=== PATIENT | female | born 1965 | race Caucasian/White ===

== ENCOUNTER → 2021-01-03 09:44 | Outpatient (BNVA) | payer MEDICAID, SELFPAY | PROVIDERS: Referring Provider Family Medicine; Visit Provider Podiatrist Foot & Ankle Surgery | DX: M79.671 Pain in right foot (principal); M19.071 Primary osteoarthritis, right ankle and foot; M21.611 Bunion of right foot | CPT/HCPCS: 73630 ==

== ENCOUNTER → 2021-02-12 09:22 | Outpatient (BNVA) | payer OTHER, SELFPAY | PROVIDERS: Visit Provider Podiatrist Foot & Ankle Surgery | DX: Z01.818 Encounter for other preprocedural examination (principal); Z20.822 Contact with and (suspected) exposure to COVID-19 | CPT/HCPCS: 87635 ==

== ENCOUNTER 2021-02-16 07:28 | Day surgery (SDC) | payer OTHER, SELFPAY ==
[2021-02-15 13:00] VITALS: BMI 27.3
[2021-02-16] VITALS (9 sets, daily range): BP systolic 110–162; BP diastolic 77–99; PULSE 76–95; RESP 13–21; TEMP 36.1–36.6; O2SAT 91–97
--- NOTE | 2021-02-16 | SCC_ITS ---
Procedure Done: Right gastrocnemius recession. First metatarsophalangeal joint arthrodesis, second tarsometatarsal joint arthrodesis and exostectomy all right foot. 11 seconds of fluoroscopic guidance, for a cumulative dose of 0.18 mGy, was provided to Dr. Mora by the radiology department. C-arm images of the RIGHT foot were saved for the patient's permanent record. [facility]OSPITALCassandra
[2021-02-16] MEDS: sodium chloride 0.9% 1,000 ML 30 ML IV (08:10)
--- NOTE | 2021-02-16 08:17 | ANES.PREANE2 ---
Pre-Anesthetic Assessment Pre-Anesthetic Assessment: Height/Weight: Height 1.6 m Weight 69.853 kg Temp Pulse Resp BP Pulse Ox 97 F L 76 18 148/99 96 02/16/21 07:52 02/16/21 07:52 02/16/21 07:52 02/16/21 07:52 02/16/21 07:52 Preop Diagnosis: Hallux rigidus, midfoot arthritis and ankle equinus right lower extremity. Proposed Procedure: Operation Date: 02/16/21 09:20 Proposed Procedures p Gastrocnemius Recession [id number] 736.72 M19.079 M20.21(Right) - Alfredo Mora DPM s Exostectomy(Right) - KIERRA Hernández Arthrodesis Foot(Right) - Alfredo Mora DPM Was Beta Brigitte taken within 24 hours: N/A Was Clonidine taken within 24 hours: N/A Last intake: Intake Last Liquid Date 02/15/21 Last Liquid Time 22:00 Last Solid Date 02/15/21 Last Solid Time 17:30 Social: Social History: Tobacco and No alcohol Exam: Pre-Anes Outpt Exam: alert, oriented x 3 and regular rate & rhythm Airway: Submandibular: WNL Cervical ROM: WNL MP: 2 Dentition: Chipped and Loose Additional comments: Very poor dentition, missing most, all cracked and chipped Pulmonary: Pulmonary: COPD Anesthetic Plan: ASA status: 3 Anesthesia: General and Regional (specify below) (Popliteal blk) Risk of > 500 ml blood loss (7ml/kg in children): No PFSH Anesthesia PFSH: Social History Quit status (tobacco): not considering quitting Second hand smoke exposure: Yes Smoking risk assessment/counseling performed?: No Alcohol intake: current Alcohol intake frequency: few times a month Alcohol type: beer Desire information about alcohol rehabilitation?: No Counseling given: No Desire information about substance/drug rehabilitation?: No Counseling given: No Data Anesthesia Cardiac Studies: No Data to Display
--- NOTE | 2021-02-16 08:33 | W.PM.OPSUD ---
Surgery/Procedure H&P Update DATE OF PROCEDURE: February 16, 2021 DATE H&P PERFORMED: 02/05/21 H&P UPDATE INFORMATION: I have reviewed H&P completed within last 30 days, I have examined patient prior to procedure and No changes to prior documentation PREOP DIAGNOSIS: Hallux rigidus, midfoot arthritis and ankle equinus right lower extremity. PLANNED PROCEDURE: Operation Date: 02/16/21 09:20 Proposed Procedures p Gastrocnemius Recession [id number] 736.72 M19.079 M20.21(Right) - KIERRA Hernández Exostectomy(Right) - KIERRA Hernández Arthrodesis Foot(Right) - Alfredo Mora DPM
[2021-02-16] MEDS: clindamycin 600 MG/50 ML PREMIX 100 MG IV (08:43)
[2021-02-16] MEDS: midazolam 1 mg/mL INJ 5 ML 5 MG IVP (08:50)
--- NOTE | 2021-02-16 08:50 | ANES.PROC ---
Anesthesia Procedures Procedure/Date: 02/16/21 Nerve Block ^: Nerve Block 1: Main Anesthesia: general anesthesia Time Out Performed: Yes Consent: requested by attending/covering physician, from patient, risks and benefits reviewed and patient agrees to proceed Nerve block location: popliteal (right) Anesthesia monitors applied: pulse oximetry, EKG, BP cuff and oxygen Nerve block position: other (prone) Anesthetic Used: ropivicaine 0.5% Amount of anesthesia used (mL): 30 Ultrasound used to: recognize landmarks Nerve Stimulator Used?: No Interscalene/Femoral BLK: 4 stimuplex 21 g needle used for position and inplane approach, visualize local anesthetic spread and no vascular puncture identified Injection: neg aspiration of heme Patient Tolerated Procedure: well Complications: none
--- NOTE | 2021-02-16 11:11 | XR_ITS ---
WS: [id number] Right foot, 3 views, 02/16/2021 Clinical Data: post op Comparison: Right foot, 01/03/2021. Findings: The patient has had an osteotomy and bunionectomy of the distal right first metatarsal and a fusion o f the right first MTP joint The fusion is with a plate and multiple screws. There is also a plate and screws at the base of the r ight second metatarsal and the second cuneiform. XR/XR foot RT min 3V* [id number] Impression: Postoperative changes of the right foot.
--- NOTE | 2021-02-16 11:42 | ANE.PACU2 ---
Inpatient post-anesthesia follow up: Airway intact: Yes Vital signs: Temperature 97.8 F Pulse Rate 86 Respiratory Rate 16 Blood Pressure 134/83 Pulse Oximetry 94 Oxygen Delivery Me thod Room Air Oxygen Flow Rate 8 Fraction of Inspir ed Oxygen Hydration adequate: Yes Nausea and vomiting: No Pain level: 1 Mental status: Baseline
--- NOTE | 2021-02-16 18:42 | PM.OP ---
Operative Report Date of procedure: February 16, 2021 Pre-op Diagnosis: Hallux rigidus, midfoot arthritis and ankle equinus right lower extremity. Pre-op Diagnosis: All right lower extremity Post-op diagnosis: same Procedure Done: Right gastrocnemius recession. First metatarsophalangeal joint arthrodesis, second tarsometatarsal joint arthrodesis and exostectomy all right foot. CPT codes: 04197, 50764, 44264 & 54381 Implants: 3-0 Vicryl, 4-0 nylon, 2-0 Vicryl, [place] 2820 mm nitinol compression staple, Tampa 28 first metatarsophalangeal joint arthrodesis plate with 2.7 mm locking screws distally and 3.5 millimeter screws proximally. Pathology: none sent Surgeon: Alfredo Mora D.P.M. [employer]: Leisa Anesthesia: General Estimated blood loss: 10 mL's Tourniquet time: 121 minutes IV fluids: None Urine output: None Complications: None Condition: stable Disposition: PACU Brief History: Patient with ankle equinus, hallux rigidus, exostosis of the fourth and second tarsometatarsal joints with arthrosis of the second tarsometatarsal joint. Planned procedure is gastrocnemius recession, first metatarsophalangeal joint arthrodesis, second tarsometatarsal joint arthrodesis and exostectomy of the fourth tarsometatarsal joint. Risks include pain, bleeding, numbness, infection, hardware failure, hardware irritation, delayed union, malunion, nonunion, neuritis, altered mechanics and transfer pressure to adjacent structures such as second metatarsal/second ray. Need for further surgical intervention. Also risk for DVT, PE, heart attack, stroke and . Patient is agreeable wishes to proceed has been n.p.o. since midnight, Covid screening negative, informed consent signed by myself and patient and I initialed her right lower extremity. No guarantees written, expressed or implied. Procedure: Under mild sedation the patient was brought to the operating room and placed on the operating table in supine position. A timeout was performed. Anesthesia was then administered by the anesthesia service. Local anesthesia injected by myself consisting of 30 cc of one-to-one mixture 1% lidocaine and 0.5% Marcaine plain in a Huang block, second ray block and at the gastrocnemius recession site. Well-padded pneumatic tourniquet applied to the right thigh. Right lower extremity was then scrubbed, prepped and draped utilizing normal aseptic technique. Right lower extremity was then wrapped with an Esmarch bandage and a tourniquet inflated to 300 mmHg. Attention was directed to the medial aspect of the right leg where the myotendinous juncture of the gastrocnemius muscle and aponeurosis was identified at the distal flare of the gastrocnemius muscle belly distally. Linear longitudinal incision made through skin with blunt dissection carried down to crural fascia with care taken to retract and preserve neurovascular tendinous structures. All bleeders were ligated and cauterized as necessary. Linear incision was made through crural fascia in the interval of the gastrocnemius fascia was dissected and the aponeurosis of the gastrocnemius muscle bellies were released from medial to lateral and total under direct visualization utilizing Huang scissors. Incision was flushed with saline solution, increased dorsiflexion at the right ankle appreciated close to 10 degrees of dorsiflexion with knee extended intraoperatively. Crural fascia closed with 3-0 Vicryl subcutaneous tissue closed with 3-0 Vicryl and skin closed with 4-0 nylon. Attention was directed to the first metatarsophalangeal joint of the right foot where a dorsal incision was performed medial and parallel to the extensor houses longus tendon through skin with dissection carried down to the layer of periosteum and joint capsule utilizing blunt and sharp technique. Care was taken to retract and preserve neurovascular tendinous structures. All bleeders were ligated and cauterized as necessary. Linear capsulotomy was performed and the head of the first metatarsal was exposed and prepared for arthrodesis utilizing a reamer followed by preparation of the base of the proximal phalanx utilizing a cup reamer and corresponding size. Incision was flushed with saline solution and subchondral drill bit employed at the first metatarsal head and proximal phalanx base. This was positioned anatomically slight valgus and slight dorsiflexion this was confirmed with intraoperative simulated weightbearing with flat surface and fluoroscopy in all 3 planes followed by fixation with a dorsal locking plate and 2.7 millimeter screws distally all 3 locking and 3.5 millimeter screws proximally utilizing the eccentric compression slot to impart additional compression at the arthrodesis site, screws were inserted utilizing standard AO technique. Excellent bony apposition and compression noted at the arthrodesis site and placement of hardware noted to be excellent in all 3 planes and intraoperative fluoroscopy. Incision was flushed with saline solution and closed in a layered fashion, joint capsule reapproximated utilizing 2-0 Vicryl, subcutaneous tissue reapproximated utilizing 3-0 Vicryl and skin reapproximated utilizing 4-0 nylon. Attention was then directed to the dorsal aspect of the right midfoot where a linear longitudinal incision was made directly over the second tarsometatarsal joint with dissection carried down to the layer of periosteum and joint capsule utilizing a combination of blunt and sharp technique. Care was taken to retract and preserve neurovascular and tendinous structures. All bleeders were ligated and cauterized as necessary. Linear periosteal incision was made following this bony hypertrophy was excised utilizing a rongeur at the dorsal aspect of the second tarsometatarsal joint. Utilizing a trephine arthrodesis technique a 12 mm trephine was utilized to harvest a autograft from the right lateral calcaneus and a 10 mm trephine at the arthrodesis site and the autograft was press-fit with excellent apposition and no voids. This was secured utilizing a 20 mm Tampa 28 nitinol staple with excellent compression and placement noted in all 3 planes utilizing fluoroscopy. Incision at the autograft harvest site of the calcaneus as well as at the second tarsometatarsal joint arthrodesis site was flushed with saline solution and closed in a layered fashion with subcutaneous tissue and periosteum closed with 3-0 Vicryl and skin closed with 4-0 nylon. Attention was then directed to the dorsal aspect of the right fourth tarsometatarsal joint where a linear longitudinal incision was made directly over osseous prominence was able to be palpated and visualized with dissection carried down to the osseous prominence utilizing blunt and sharp technique. Care was taken to retract and preserve neurovascular and tendon structures. All bleeders were ligated and cauterized as necessary. Osseous prominence was both at the base of the fourth metatarsal and at the distal aspect of the cuboid was sharply excised and all rough edges smoothed utilizing a bone rasp. This was flushed with saline and closed with 3-0 Vicryl at periosteum and subcutaneous tissue and 4-0 nylon at skin. All incision sites were then dressed with Adaptic, sterile 4 x 4, Kerlix, Gurjit wrap and the patient was placed into a cam boot. Tourniquet was deflated and a prompt hyperemic response was noted to the distal digits of the right foot. Patient tolerated the procedure and anesthesia well and was transferred to the PACU with vital signs stable and vascular status intact. Following a period of postoperative monitoring she will be discharged home is to remain strict nonweightbearing and elevate her right foot while at rest she will keep your postoperative dressings clean, dry and intact until follow-up visit Friday next week on 23 February. She was sent a prescription for Percocet 10/325 mg to be taken every 6 hours as needed for pain this was sent to [facility]. Patient provided my cell phone number will contact me with any postoperative questions or concerns.
== END 2021-02-16 12:10 | disposition home or self-care (01) ==
PROVIDERS: PCP Family Medicine; Visit Provider Podiatrist Foot & Ankle Surgery
PROC: (CPT 27687; principal; 2021-02-16 09:20)
PROC: (CPT 28288; 2021-02-16 09:20)
PROC: (CPT 28740; 2021-02-16 09:20)
DX: M20.21 Hallux rigidus, right foot (principal); M19.071 Primary osteoarthritis, right ankle and foot; J44.9 Chronic obstructive pulmonary disease, unspecified; F17.210 Nicotine dependence, cigarettes, uncomplicated
CPT/HCPCS: 27687; 28122; 28740; 28750; 64450; 73630; 76000; 76942; 96374; C1713; J1100; J1885; J2250; J2405; J2704; J2795; J3010; J3490; J7030

== ENCOUNTER → 2021-03-01 14:57 | Outpatient (BNVA) | payer OTHER, SELFPAY | PROVIDERS: PCP Family Medicine; Visit Provider Podiatrist Foot & Ankle Surgery | DX: Z98.890 Other specified postprocedural states (principal) | CPT/HCPCS: 73630 ==

== ENCOUNTER → 2021-03-19 09:09 | Outpatient (BNVA) | payer OTHER, SELFPAY | PROVIDERS: PCP Family Medicine; Visit Provider Podiatrist Foot & Ankle Surgery | DX: Z98.890 Other specified postprocedural states (principal); Z98.1 Arthrodesis status | CPT/HCPCS: 73630 ==

== ENCOUNTER → 2021-03-29 13:32 | Outpatient (BNVA) | payer OTHER, SELFPAY | PROVIDERS: PCP Family Medicine; Visit Provider Podiatrist Foot & Ankle Surgery | DX: Z98.890 Other specified postprocedural states (principal); M25.474 Effusion, right foot | CPT/HCPCS: 73630 ==

== ENCOUNTER → 2021-04-16 09:40 | Outpatient (BNVA) | payer OTHER, SELFPAY | PROVIDERS: PCP Family Medicine; Visit Provider Podiatrist Foot & Ankle Surgery | DX: Z98.890 Other specified postprocedural states (principal); Z48.89 Encounter for other specified surgical aftercare | CPT/HCPCS: 73630 ==

== ENCOUNTER → 2021-05-23 08:04 | Outpatient (BNVA) | payer OTHER, SELFPAY | PROVIDERS: PCP Family Medicine; Visit Provider Podiatrist Foot & Ankle Surgery | DX: Z98.890 Other specified postprocedural states (principal) | CPT/HCPCS: 73630 ==